=== PATIENT | female | born 1995 | race Caucasian/White ===

== ENCOUNTER 2021-04-13 14:29 | Emergency (ER) | payer OTHER, SELFPAY ==
[2021-04-13 15:10] VITALS: BP 130/83; PULSE 108; RESP 16; TEMP 37.2; O2SAT 95; BMI 38.9
[2021-04-13 17:17] VITALS: BP 116/92; PULSE 107; RESP 18; O2SAT 97
[2021-04-13 17:21] LABS: HCG Qualitative Urine. Negative (Negative)
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
[2021-04-13] MEDS: iohexol 300 mg/mL 100 mL Btl IV (17:47)
[2021-04-13 18:00] VITALS: BP 134/96; PULSE 103; RESP 18; O2SAT 98
[2021-04-13 18:03] VITALS: BP 134/96; PULSE 102; RESP 18; O2SAT 96
--- NOTE | 2021-04-13 18:04 | PC.NURSE ---
States sitting up feels better than laying down. Too much pressure on left flank side with laying pain laying back
[2021-04-13 18:07] LABS: Basophils % 0.5 %; Eosinophils # 0.1 10^3/uL (0.0-0.8); Eosinophils % 0.8 %; Hematocrit 45.5 % (37.0-47.0); Hemoglobin 15.6 g/dL (11.5-15.3); Lymphocytes # 1.9 10^3/uL (0.8-4.8); Lymphocytes % 21.5 %; Mean Corpuscular HGB Conc 34.3 g/dL (30.0-36.0); Mean Corpuscular Hemoglobin 30.5 pg (28.0-34.0); Mean Corpuscular Volume 88.9 fL (81-99); Monocytes # 0.4 10^3/uL (0.2-0.9); Monocytes % 5.1 %; Neutrophils # 6.16 10^3/uL (1.8-7.7); Neutrophils % 71.8 %; Nucleated Red Blood Cells % 0 %; Platelet Count 292 10^3/cmm (130-400); Red Blood Count 5.12 10^6/uL (4.1-5.3); Red Cell Distribution Width 12.4 % (12.1-15.1); White Blood Count 8.6 10^3/uL (4.0-10.0)
[2021-04-13 18:56] LABS: Alanine Aminotransferase 160 U/L (0-33); Albumin Level 4.5 g/dL (3.5-5.2); Alkaline Phosphatase 65 IU/L (35-105); Anion Gap 15.4 (5-19); Aspartate Amino Transferase 83 U/L (0-32); Blood Urea Nitrogen 11 mg/dL (6-20); Calcium 8.7 mg/dL (8.5-10.5); Carbon Dioxide 24 mmol/L (22-29); Chloride 100 mmol/L (98-107); Globulin 2.5 g/dL (1.3-4.6); Glomerular Filtration Rate 119.9 mL/min (90-130); Glucose 92 mg/dL (65-115); Osmolality Calculated 279 mOsm/kg (285-295); Potassium 4.4 mmol/L (3.5-5.1); Sodium 135 mmol/L (136-145); Total Bilirubin 0.3 mg/dL (0.15-1.2)
[2021-04-13 20:00] VITALS: BP 117/78; PULSE 84; RESP 18; O2SAT 98
[2021-04-13 20:33] VITALS: BP 117/78; PULSE 84; RESP 18; O2SAT 98
== END 2021-04-13 20:25 | disposition home or self-care (01) ==
PROVIDERS: Emergency Medicine; Emergency Provider Physician Assistant
DX: S20.212A Contusion of left front wall of thorax, initial encounter (principal); V89.2XXA Person injured in unspecified motor-vehicle accident, traffic, initial encounter
CPT/HCPCS: 71260; 74177; 80053; 81025; 85025; 99283; Q9967